=== PATIENT | female | born 1990 | race Caucasian/White ===

== ENCOUNTER → 2021-04-16 11:29 | Outpatient (BNVA) | payer MEDICAID, SELFPAY | PROVIDERS: Visit Provider Psychiatry & Neurology Psychiatry | DX: F31.81 Bipolar II disorder (principal); F41.9 Anxiety disorder, unspecified; F43.10 Post-traumatic stress disorder, unspecified | CPT/HCPCS: 90792 ==

== ENCOUNTER 2021-07-30 10:05 | Outpatient (CLI) | payer BC, MEDICAID, SELFPAY ==
--- NOTE | 2021-07-30 10:21 | US_ITS ---
WS: [id number] TRANSVAGINAL PELVIC ULTRASOUND HISTORY: MENORRHAGIA COMPARISON: None available. Uterus: 8.4 cm x 5.9 cm x 4.8 cm. Anteverted uterus. Slightly heterogeneous and globular appearance o f the uterus. No mass or fibroid is identified. There is a large amount shadowing from the scar obscuring portions of the mid to lower uterus. Endometrium: 1.2 cm. Mildly hyperechoic endometrium. No mass identified or increased vascularity. Right ovary: 3.9 cm x 3.1 cm x 2.5 cm. Mildly enlarged ovary. There are several small follicles. Ther e is a dominant follicle measuring 1.3 x 1.5 x 1.8 cm. There is a prominent septation with increased vascularity through the ovary. This may be normal ovarian tissue. This needs to be further evaluated on follow-up examinations. Left ovary: 3.2 cm x 3.2 cm x 2.7 cm. Normal size and vascularity, no cystic or solid masses. No free fluid US/US transvaginal [id number] IMPRESSION: 1. Normal endometrium. 2. Prominent, echogenic septation with increased vascularity and the RIGHT ova ry. Due to the increased echogenicity with mild nodularity, short-term follow-u p is recommended. Early cystic neoplasm versus a normal septation se veral follicles within the differential. Recommend follow-up examination in 6-8 weeks. 3. Slightly globular appearance of the uterus but no mass.
== END 2021-07-30 10:06 | disposition home or self-care (01) ==
PROVIDERS: PCP Family Medicine; Visit Provider Family Medicine
DX: N92.0 Excessive and frequent menstruation with regular cycle (principal); R93.89 Abnormal findings on diagnostic imaging of other specified body structures
CPT/HCPCS: 76830